=== PATIENT | female | born 1965 | race African-American/Black ===

== ENCOUNTER 2022-03-07 17:01 | Observation (INO) ==
[2022-03-07 21:20] LABS: ALT 17 U/L (7-52); Albumin 4.2 g/dL (3.2-5.2); Albumin/Globulin Ratio 1.4 (1-3); Alkaline Phosphatase 76 U/L (35-149); Blood Urea Nitrogen 10 mg/dL (6-24); CO2 Carbon Dioxide 26 mmol/L (22-32); Chloride 105 mmol/L (101-111); Glucose 84 mg/dL (70-100); Sodium 140 mmol/L (135-145); Total Protein 7.2 g/dL (6.4-8.9); eGFR CKD-EPI 101.2 (>60)
[2022-03-07 21:22] LABS: ABS Basophils 0.1 10^3/ul (0-0.2); ABS Eosinophils 0.3 10^3/ul (0-0.6); ABS Lymphocytes 2.6 10^3/ul (1.0-4.8); ABS Monocytes 0.4 10^3/ul (0-0.8); ABS Neutrophils 2.2 10^3/ul (1.5-7.7); Eosinophil % 4.9 %; Hematocrit 50 % (35-47); Hemoglobin 16.6 g/dL (12.0-16.0); Lymphocyte % 47.3 %; Mean Corpuscular HGB Conc 34 g/dL (31-36); Mean Corpuscular Hemoglobin 30 pg (27-31); Mean Corpuscular Volume 89 fL (80-97); Mean Platelet Volume 8.6 fL (7.4-10.4); Nucleated Red Blood Cells % 0.2; Platelet Count 230 10^3/uL (150-450); Red Blood Count 5.54 10^6 /uL (3.70-4.87); Red Cell Distribution Width 14 % (10-15); White Blood Count 5.4 10^3/uL (3.5-10.8)
[2022-03-07 21:25] LABS: Anion Gap 9 mmol/L (2-11)
[2022-03-07 21:31] LABS: TSH Ultra Thyroid Stim Horm 2.45 mcIU/mL (0.34-5.60)
[2022-03-07 22:06] LABS: High Sensitivity Troponin 1 Hr 3 pg/mL (<15)
[2022-03-07 22:19] LABS: High Sens Troponin Baseline 3 pg/mL (<15)
[2022-03-08 05:15] LABS: Erythrocyte Sed Rate 2 mm/Hr (0-29)
[2022-03-08 06:36] LABS: Rheumatoid Factor < 10 IU/mL (<15)
[2022-03-08] MEDS ORDERED: Cyanocobalamin INJ 1,000 MCG/ML VIAL 1 ML VIAL IM ONE (08:57)
[2022-03-08 09:22] LABS: Hematocrit 46 % (35-47); Hemoglobin 15.2 g/dL (12.0-16.0); Mean Corpuscular HGB Conc 33 g/dL (31-36); Mean Corpuscular Hemoglobin 30 pg (27-31); Mean Corpuscular Volume 89 fL (80-97); Mean Platelet Volume 8.6 fL (7.4-10.4); Platelet Count 219 10^3/uL (150-450); Red Blood Count 5.14 10^6 /uL (3.70-4.87); Red Cell Distribution Width 14 % (10-15); White Blood Count 4.4 10^3/uL (3.5-10.8)
[2022-03-08 11:29] LABS: Urine Appearance Clear; Urine Color Yellow
[2022-03-08 11:30] LABS: Urine Bilirubin Negative (Negative); Urine Blood Negative (Negative); Urine Glucose Negative (Negative); Urine Ketones Negative (Negative); Urine Nitrite Negative (Negative); Urine Protein Negative (Negative); Urine Urobilinogen 0.2 (Negative) (Negative)
[2022-03-08 13:08] LABS: C Reactive Protein 1.15 mg/L (<8.01)
[2022-03-08 13:09] LABS: Urine Bacteria Absent (Absent); Urine Red Blood Cell Trace(0-2/hpf) (Absent); Urine Squamous Epithelial Cell Present (Absent); Urine White Blood Cell Trace(0-5/hpf) (Absent)
[2022-03-08 13:31] LABS: ABS Eosinophils 0.2 10^3/ul (0-0.6); ABS Lymphocytes 1.6 10^3/ul (1.0-4.8); ABS Monocytes 0.4 10^3/ul (0-0.8); ABS Neutrophils 2.1 10^3/ul (1.5-7.7); Lymphocyte % 37.3 %; RBC Morphology Normal (Normal)
[2022-03-08] MEDS ORDERED: Gadoteridol (CONTRAST) 279.3 MG/ML 10 ML IV ONE (17:08)
[2022-03-09 06:37] LABS: HDL Cholesterol 78.2 mg/dL
[2022-03-09 11:46] VITALS: BP 131/118
== END 2022-03-09 14:00 | disposition home or self-care (01) ==
LOC: EDHOLD 17:01 → ED 17:01 → SUATTDRO 03-08 02:53 → EDHOLD 03-08 11:32 → MED 03-08 11:46
PROVIDERS: ADMIT Internal Medicine; ATTEND Student in an Organized Health Care Education/Training Program